=== PATIENT | male | born 1960 | race Caucasian/White ===

== ENCOUNTER → 2016-05-09 07:03 | Outpatient (CLI) | payer BC ==
[2015-01-06 12:06] VITALS: BMI 31.2
[~2016-05-09 07:03] MED LIST: ACETAMINOPHEN500 M1 PO; ASPIRIN325 MG PO; ATIVAN0.5 MG PO; GLUCOPHAGE500 MG PO; GLUCOTROL 5 MG T5 MG PO; IBUPROFEN400 MG PO; KLONOPIN0.5 MG PO; LISINOPRIL10 MG PO; TRICOR48 MG PO
== END ==
LOC: D.MRI 07:03
DX: I63.9 Cerebral infarction, unspecified (principal); F39 Unspecified mood [affective] disorder

== ENCOUNTER → 2017-09-23 09:48 | Outpatient (CLI) | payer BC, MEDICARE ==
[2015-01-06 12:06] VITALS: BMI 31.2
== END | disposition home or self-care (01) ==
LOC: D.MRI 09:48
DX: F80.1 Expressive language disorder (principal)

== ENCOUNTER 2018-05-24 21:23 | Emergency (ER) | payer MEDICARE ==
[~2018-05-24] VITALS: Ht 182.9 cm; Wt 90.9 kg
[2018-05-24 21:33] VITALS: Ht 182.9 cm; Wt 90.9 kg
[2018-05-25 00:21] VITALS: BP 146/89
== END 2018-05-25 00:22 | disposition home or self-care (01) ==
LOC: D.ER 21:23
DX: F41.9 Anxiety disorder, unspecified (principal)